=== PATIENT | male | born 1965 | race Caucasian/White ===

== ENCOUNTER → 2017-04-21 | Outpatient (CLI) | payer BC ==
--- NOTE | 2017-04-21 11:42 | ECHOS ---
STRESS ECHOCARDIOGRAM DATE OF SERVICE: 04/21/2017 INDICATIONS: Chest pain. MEDICATIONS: Atenolol, Flomax, aspirin. BASELINE HEART RATE: 63 BASELINE BLOOD PRESSURE: 128/62 MAXIMUM HEART RATE: 142 MAXIMUM BLOOD PRESSURE: 202/74 85% MPHR: 141 100% MPHR: 166 METS: 12.1 MAXIMUM STAGE REACHED: 4 TOTAL EXERCISE TIME: 10:30 Baseline EKG revealed normal sinus rhythm without significant ST-T changes. Patient walked for 10 minute 30 seconds on a standard Jose protocol. Achieved a maximal heart rate of 142 beats per minute which is 85% of predicted maximal. He developed fatigue and shortness of breath, but did not have any clear-cut angina. Rare isolated PVCs were noted. EKG remained unremarkable. This is a negative stress test with good exercise capacity. Baseline echo images revealed normal wall motion and wall thickening of all segments. At peak exercise, there was good augmentation of left ventricular wall motion and wall thickening of all segments suggesting that there was no evidence of stress-induced ischemia on this study. IMPRESSION: 1. Good exercise capacity with a negative stress test by EKG criteria. 2. Negative stress echocardiogram. MMODL / IJN: [id number] /
== END | disposition home or self-care (01) ==
LOC: RADNMMAIN 08:56
PROVIDERS: ATTEND Family Medicine
DX: Z01.818 Encounter for other preprocedural examination (principal); R07.89 Other chest pain
CPT/HCPCS: 93017; 93350

== ENCOUNTER → 2017-12-22 | Outpatient (CLI) | payer BC ==
--- NOTE | 2017-12-23 08:41 | XR ---
Right shoulder HISTORY: Right shoulder pain 3 views of the right shoulder Acromioclavicular joint arthropathy is noted. Right lung apex as visualized is normal. Bone mineraliz ation and alignment are maintained. No fracture or dislocation. IMPRESSION: Acromioclavicular joint arthropathy, shoulder MRI may be of benefit
== END | disposition home or self-care (01) ==
LOC: RADXRMAIN 17:28
PROVIDERS: ATTEND Family Medicine
DX: M12.811 Other specific arthropathies, not elsewhere classified, right shoulder (principal)

== ENCOUNTER → 2018-04-08 | Outpatient (CLI) | payer BC ==
[2018-04-08 10:00] LABS: Basophils % (A) 1 %; Eosinophils # (A) 0.1 k/uL (0-0.7); Eosinophils % (A) 1 %; HGB 16.7 gm/dL (13.0-17.5); Lymphocytes # (A) 1.8 k/uL (1.0-4.8); Lymphocytes % (A) 26 %; MCH 27.3 pg (25.0-35.0); MCHC 32.8 g/dL (31.0-37.0); MCV 83.4 fL (80.0-100.0); Mean Platelet Volume 6.5; Monocytes # (A) 0.5 k/uL (0-1.0); Monocytes % (A) 7 %; Neutrophils # (A) 4.5 k/uL (1.3-7.7); Neutrophils % (A) 63 %; Platelet Count 268 k/uL (150-450); RBC 6.11 m/uL (4.30-5.90); RDW 14.4 % (11.5-15.5); WBC 7.1 k/uL (3.8-10.6)
[2018-04-08 17:50] LABS: Albumin 4.8 g/dL (3.80-4.90); Albumin/Globulin Ratio 2.82 (1.20-2.10); Anion Gap 7.4 mmol/L (4.00-12.00); Calcium 9.6 mg/dL (8.7-10.3); Carbon Dioxide 28.6 mmol/L (21.6-31.8); Globulin 1.7 g/dL (2.1-3.7); Potassium 4.7 mmol/L (3.5-5.5); Total Bilirubin 2.1 mg/dL (0.3-1.2); Total Protein 6.5 g/dL (6.2-8.2)
[2018-04-08 17:57] LABS: T4, Free (Free Thyroxine) 1.3 ng/dL (0.80-1.80)
== END ==
LOC: LABWHC1 09:22
PROVIDERS: ATTEND Family Medicine
DX: Z00.01 Encounter for general adult medical examination with abnormal findings (principal); E03.8 Other specified hypothyroidism; I10 Essential (primary) hypertension; Z12.5 Encounter for screening for malignant neoplasm of prostate
CPT/HCPCS: 36415; 80053; 80061; 84153; 84439; 84443; 85025

== ENCOUNTER 2018-05-11 17:07 | Emergency (ER) | payer BC ==
[2018-05-11 17:23] VITALS: TEMP 98
[2018-05-11] MEDS ORDERED: RX INFO: IV CONTRAST WAS GIVEN 1 EACH MISC MISCELLANE PRN (17:55)
[2018-05-11] MEDS ORDERED: SODIUM CHLORIDE 0.9% 1,000 ML IV STA (17:55)
[2018-05-11] MEDS ORDERED: ONDANSETRON 4 MG/2 ML VIAL IVP STA (17:55)
[2018-05-11] MEDS ORDERED: diphenhydrAMINE 50 MG/ML 1 ML VIAL IVP STA (17:56)
--- NOTE | 2018-05-11 17:59 | ED ---
General Adult HPI - General Chief complaint: Eye Problems Stated complaint: eye & head pain Source: patient Mode of arrival: ambulatory Limitations: no limitations - Related Data Home Medications Medication Instructions Recorded Confirmed Aspirin 81 mg PO DAILY 05/20/14 05/11/18 Atenolol [Tenormin] 50 mg PO DAILY 05/20/14 05/11/18 Ascorbic Acid [Vitamin C] 1,000 mg PO DAILY 05/11/18 05/11/18 Budesonide/Formoterol Fumarate 2 puff INHALATION RT-BID 05/11/18 05/11/18 [Symbicort 160-4.5 Mcg Inhaler] Multivitamins, Thera [Multivitamin 1 tab PO DAILY 05/11/18 05/11/18 (formulary)] Allergies Allergy/AdvReac Type Severity Reaction Status Date / Time meperidine HCl [From Demerol] Allergy Nausea & Verified 05/11/18 19:02 Vomiting morphine Allergy Nausea & Verified 05/11/18 19:02 Vomiting Review of Systems ROS Statement: Those systems with pertinent positive or pertinent negative responses have been documented in the HPI. ROS Other: All systems not noted in ROS Statement are negative. Past Medical History Past Medical History: Asthma, GERD/Reflux, Hypertension History of Any Multi-Drug Resistant Organisms: None Reported Past Surgical History: Hernia Repair Additional Past Surgical History / Comment(s): EXC PILONIDAL CYST Past Anesthesia/Blood Transfusion Reactions: Motion Sickness Additional Past Anesthesia/Blood Transfusion Reaction / Comment(s): PAST HX MOTION SICKNESS ONLY Past Psychological History: No Psychological Hx Reported Smoking Status: Never smoker Past Alcohol Use History: None Reported Past Drug Use History: None Reported General Exam Limitations: no limitations Course Vital Signs 05/11/18 05/11/18 05/11/18 17:20 20:30 21:16 Temperature 98 F Pulse Rate 58 L 55 L 57 L Respiratory 20 16 16 Rate Blood Pressure 153/52 135/82 136/80 O2 Sat by Pulse 99 96 96 Oximetry Medical Decision Making - Medical Decision Making Dictation was produced using [employer] dictation software. please excuse any grammatical, word or spelling errors. Chief Complaint: 53-year-old male past medical history of asthma, hypertension, GERD presents with headache. History of Present Illness: Is 53-year-old male. He states she's been having headache for approximately 2 weeks. He was seen by his bus operator were ophthalmologic exam was performed and did not find any acute processes. He was instructed by the bus operator come to the emergency department. Patient states she's been having these headaches for approximately 2 weeks. He localizes the pain to her bilateral with some pain around and behind the eye. He states that his pain is exacerbated with pressure or palpation to the right eyeball. Patient states the pain radiates to his right advent area. He states that it slightly throbbing. Denies any diurnal pattern. Denies any pain anterior to the right ear. No pain with mastication. Patient has a history of autoimmune diseases. Does feel that his vision is also slightly blurry. The ROS documented in this emergency department record has been reviewed and confirmed by me. Those systems with pertinent positive or negative responses have been documented in the HPI. All other systems are other negative and/or noncontributory. PHYSICAL EXAM: General Impression: Alert and oriented x3, not in acute distress HEENT: Normocephalic atraumatic, extra-ocular movements intact, pupils equal and reactive to light bilaterally, mucous membranes moist, no pain with palpation of the superficial temporal artery Cardiovascular: Heart regular rate and rhythm, S1&S2 audible, no murmurs, rubs or gallops Chest: Lungs clear to auscultation bilaterally, no rhonchi, no wheeze, no rales Abdomen: Bowel sounds present, abdomen soft, non-tender, non-distended, no organomegaly Musculoskeletal: Pulses present and equal in all extremities, no peripheral edema Motor: Power 5/5 bilaterally, no focal deficits noted Neurological: mild lateral gaze deficit to the right eye Skin: Intact with no visualized rashes Psych: Normal affect and mood ED course: 53-year-old male presents with headache 2 weeks. He was evaluated by bus operator with negative exam. He was instructed by bus operator the emergency department for further care. As upon arrival are within acceptable limits. Computed tomography scan of the head was unremarkable. Labs unremarkable. Patient treated with headache cocktail. Patient reevaluated persistent symptoms. We then provided patient with Imitrex and Decadron. Patient reevaluated with improvement of symptoms. Patient told that he should follow-up with neurology for outpatient management of headaches. - Lab Data Result diagrams: 05/11/18 18:10 05/11/18 18:10 Lab Results 05/11/18 05/11/18 Range/Units 18:10 18:10 WBC 8.0 (3.8-10.6) k/uL RBC 6.03 H (4.30-5.90) m/uL Hgb 16.5 (13.0-17.5) gm/dL Hct 49.4 (39.0-53.0) % MCV 81.9 (80.0-100.0) fL MCH 27.4 (25.0-35.0) pg MCHC 33.4 (31.0-37.0) g/dL RDW 14.3 (11.5-15.5) % Plt Count 249 (150-450) k/uL Neutrophils % 58 % Lymphocytes % 30 % Monocytes % 7 % Eosinophils % 2 % Basophils % 0 % Neutrophils # 4.6 (1.3-7.7) k/uL Lymphocytes # 2.4 (1.0-4.8) k/uL Monocytes # 0.5 (0-1.0) k/uL Eosinophils # 0.1 (0-0.7) k/uL Basophils # 0.0 (0-0.2) k/uL ESR 2 (0-15) mm/hr Sodium 140 (137-145) mmol/L Potassium 5.3 H (3.5-5.1) mmol/L Chloride 103 (98-107) mmol/L Carbon Dioxide 29 (22-30) mmol/L Anion Gap 8 mmol/L BUN 13 (9-20) mg/dL Creatinine 0.90 (0.66-1.25) mg/dL Est GFR (CKD-EPI)AfAm >90 (>60 ml/min/1.73 sqM) Est GFR (CKD-EPI)NonAf >90 (>60 ml/min/1.73 sqM) Glucose 85 (74-99) mg/dL Calcium 9.6 (8.4-10.2) mg/dL Disposition Clinical Impression: Headache Disposition: HOME SELF-CARE Condition: Good Instructions: Acute Headache (ED) Is patient prescribed a controlled substance at d/c from ED?: No Referrals: Molina Moe DO [Primary Care Provider] - 1-2 days Time of Disposition: 21:45
--- NOTE | 2018-05-11 18:42 | CT ---
EXAMINATION TYPE: CT brain w con DATE OF EXAM: 05/11/2018 COMPARISON: None HISTORY: Right eye pain and headache CT DLP: 1115.4 mGycm Automated exposure control for dose reduction was used. CONTRAST: CT scan of the head is performed with IV Contrast, patient injected with 100ml mL of Isovue 300. FINDINGS: Ventricles of normal size. There is no mass effect or midline shift. There is no sign of intracranial hemorrhage. The calvarium is intact. There is no pathologic enhancement. There is no evidence of ret ro-orbital mass. IMPRESSION: Normal CT scan of the brain.
[2018-05-11 19:12] LABS: Basophils % (A) 0 %; Eosinophils # (A) 0.1 k/uL (0-0.7); Eosinophils % (A) 2 %; HCT 49.4 % (39.0-53.0); HGB 16.5 gm/dL (13.0-17.5); Lymphocytes # (A) 2.4 k/uL (1.0-4.8); Lymphocytes % (A) 30 %; MCH 27.4 pg (25.0-35.0); MCHC 33.4 g/dL (31.0-37.0); MCV 81.9 fL (80.0-100.0); Mean Platelet Volume 6.2; Monocytes # (A) 0.5 k/uL (0-1.0); Monocytes % (A) 7 %; Neutrophils # (A) 4.6 k/uL (1.3-7.7); Neutrophils % (A) 58 %; Platelet Count 249 k/uL (150-450); RBC 6.03 m/uL (4.30-5.90); RDW 14.3 % (11.5-15.5)
[2018-05-11 19:18] LABS: Anion Gap 8 mmol/L; Blood Urea Nitrogen 13 mg/dL (9-20); Calcium 9.6 mg/dL (8.4-10.2); Carbon Dioxide 29 mmol/L (22-30); Chloride 103 mmol/L (98-107); Glucose 85 mg/dL (74-99); Sodium 140 mmol/L (137-145)
[2018-05-11 19:19] LABS: Potassium 5.3 mmol/L (3.5-5.1)
[2018-05-11 20:33] LABS: Erythrocyte Sedimentation Rate 2 mm/hr (0-15)
[2018-05-11] MEDS ORDERED: DEXAMETHASONE SOD PHOSPHATE 10 MG/ML 1 ML VIAL IV STA (20:44)
[2018-05-11] MEDS ORDERED: SUMAtriptan SUCCINATE 25 MG TAB PO STA (20:45)
[2018-05-11 20:50] VITALS: RESP 16
[2018-05-11 21:52] VITALS: BP 133/86; PULSE 53
== END 2018-05-11 21:52 | disposition home or self-care (01) ==
LOC: EC 17:07
DX: R51 Headache (principal); H53.8 Other visual disturbances; H57.13 Ocular pain, bilateral; J45.909 Unspecified asthma, uncomplicated; I10 Essential (primary) hypertension; Z79.82 Long term (current) use of aspirin; Z79.51 Long term (current) use of inhaled steroids; Z79.899 Other long term (current) drug therapy; Z88.5 Allergy status to narcotic agent
CPT/HCPCS: 36415; 80048; 85652; 85025; 70460; 99284; 96374; 96375 ×2; 96361; J1200; J1100; J2405; Q9967

== ENCOUNTER → 2018-05-20 | Outpatient (CLI) | payer BC | END | disposition home or self-care (01) | LOC: LABWHC1 08:47 | PROVIDERS: ATTEND Family Medicine | DX: E87.5 Hyperkalemia (principal) | CPT/HCPCS: 36415; 84132 ==